=== PATIENT | female | born 1955 | race Caucasian/White ===

== ENCOUNTER 2023-12-05 10:30 | Outpatient (RCR) | payer BC, MEDICARE, SELFPAY ==
--- NOTE | 2023-11-04 16:53 | PT.OIE ---
Current Diagnoses Constipation, unspecified (11/04/23) Stiffness of unspecified hip, not elsewhere classified (11/04/23) Postural lordosis, lumbosacral region (11/04/23) Female genital prolapse, unspecified (11/04/23) Visit Care Team Role Provider Type Brad Golden MD Attending Provider Non-Staff Family Provider Primary Care Provider Referring Provider Specialty: MACHINE PECAN PICKER Address: [address] [place] [address], [id number] Email: Physical Therapy Initial Evaluation PT-OP-A Visit Information Start: 10/28/23 17:06 Freq: Status: Active Protocol: Document 11/04/23 08:18 LRN (Rec: 11/04/23 08:59 LRN [id number]) Out-Patient Physical Therapy Visit Information Visit Information Visit Type Initial Evaluation Visit Start Time 08:18 Visit Stop Time 08:58 Visit Number 08/20 Evaluation Information Evaluation Date 11/04/23 Precautions Precautions Arthritis of hips, HBP controlled by meds, Diabetes type II, fracture R clavical x 2. PT-OP-B Current Condition Start: 10/28/23 17:06 Freq: Status: Active Protocol: Document 11/04/23 08:18 LRN (Rec: 11/04/23 08:59 LRN [id number]) Current Condition History of Current Condition Onset Date 03/2023 Current Complaints Feeling of something in PF, urinates a lot, dribbling after urinating. History of Current Condition Was having bowel movement and was straining and felt something drop. She denies urinary leakage. Was checked and told she had a bladder prolapse. 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 Prior Treatments and Tests None Developmental History Developmental History History of 2 vaginal births w/ o complications. Treatment Goals Patient/Caregiver Goals Pt goals with therapy is to reduce number of voids in a day, improve PF strength to reduce the prolapse. Personal Factors Other Personal Factors That May Effect OA of hips, Ovary & Gall Therapy/Recovery bladder removed. PT-OP-C Subjective Start: 10/28/23 17:06 Freq: Status: Active Protocol: Document 11/04/23 08:18 LRN (Rec: 11/04/23 08:59 LRN [id number]) Patient Questionnaires Pelvic Pain and Urgency/Frequency Patient Symptom Scale Pelvic Pain Score 2 PT-OP-I Pelvic Floor Start: 10/28/23 17:06 Freq: Status: Active Protocol: Document 11/04/23 08:18 LRN (Rec: 11/04/23 08:59 LRN [id number]) Pelvic Floor Assessment Urine Urinary Symptoms Prolapse,Dribbling After Urination,Falling Out Feeling/ Heavy Other Urinary Symptoms Heaviness when having urgency or if need to have a BM. Feels bladder completely empties if sits on toilet long enough. Leakage Size Small Other Leakage Causes Vigorous activity Voiding Frequency 7-8x/day Nocturia 1 Bowel Bowel Symptoms Constipation Bowel Movement Frequency 1-2 in AM [place] Stool Chart Type 1-7 4 Prolapse Cystocele Grade 3 Urethrocele Grade 3 Rectocele Grade 1 Perineal Descent Resting Present Bearing Present Contraction Ability Voluntary Contraction Weak Voluntary Relaxation Weak Manual Muscle Testing Left 3 Manual Muscle Testing Right 2 Manual Muscle Testing Anterior 0 Manual Muscle Testing Posterior 1 Muscle Endurance (Seconds) 4 Number of Quick Contractions In 10 6 Seconds PT-OP-J Posture/Palpation/Skin Start: 10/28/23 17:06 Freq: Status: Active Protocol: Document 11/04/23 08:18 LRN (Rec: 11/04/23 08:59 LRN [id number]) Posture Evaluation Position Standing Head/C-Spine Posture Forward Head T-Spine Posture Flattened L-Spine Posture Increased Lordosis Shoulder Posture (R) Elevated Arm Posture (L) Neutral,(R) Neutral Pelvis Posture Anteriorly Tilted PT-OP-K Range of Motion Start: 10/28/23 17:06 Freq: Status: Active Protocol: Document 11/04/23 08:18 LRN (Rec: 11/04/23 08:59 LRN [id number]) Lumbar Spine Range of Motion Lumbar Spine Active Degrees Testing Position Standing Flexion 80 Extension 7 Rotation Left 20 Rotation Right 20 Lateral Flexion Left 8 Lateral Flexion Right 8 Hip Goniometric Range of Motion Hip Right Passive Testing Position Supine Abduction 20 Internal Rotation 15 External Rotation 20 Left Passive Testing Position Supine Abduction 20 Internal Rotation 20 External Rotation 10 PT-OP-M Strength Start: 10/28/23 17:06 Freq: Status: Active Protocol: Document 11/04/23 08:18 LRN (Rec: 11/04/23 08:59 LRN [id number]) Trunk Strength Trunk Manual Muscle Testing Core Stabilization Decreased stability with hip ext MMT. Hip Strength Hip Manual Muscle Testing Right Comments Strength is 5/5 except as indicated above. Left External Rotation 4 Good Comments Strength is 5/5 except as indicated above. PT-OP-Q Treatments Start: 10/28/23 17:06 Freq: Status: Active Protocol: Document 11/04/23 08:18 LRN (Rec: 11/04/23 08:59 LRN [id number]) Self-Care/Home Management Treatment Education Other Education Discussed results of evaluation, goals, and plan of care (POC) with pt, discussed attendance/cx/dns policy; pt agreeable to goals, attendance /cx/dns policy and POC. Issued, discussed, & reviewed Bladder Diary for pt to complete over the next 7 days. Explained how to fill out diary for bowel & bladder, and counting of urination times. Educated pt in Kegel exercises : quick and long hold contractions. Activities Self-Care/Home Management Activities Issued & reviewed HEP: Kegel ex's and discussed exercise of Quick Flicks and Long Holds. PT-OP-T Assessment and Plan Start: 10/28/23 17:06 Freq: Status: Active Protocol: Document 11/04/23 08:18 LRN (Rec: 11/04/23 08:59 LRN [id number]) Physical Therapy Assessment Rehab Potential Rehabilitation Potential Good Evaluation Complexity Number of Personal Factors/Comorbidities 0 Number of Body Systems Impaired 3 Clinical Presentation at Evaluation Evolving Impairments Impairments Pain,Posture,ROM,Soft Tissue Mobility,Strength,Transfers Other Impairments Cystocele Goals Three Impairment Cystocele due to PF weakness Short Term Goal (STG) Pt will be educated in proper sitting/standing posture. STG Duration 4 wks-12/02/23 Talent Rep Goal (LTG) improve PF strength to 3/5 to reduce bladder prolapse. LTG Duration 8 wks-12/30/23 Two Impairment Increased urinary frequency. Short Term Goal (STG) Pt will be educated in urge deference technique for bladder retraining. STG Duration 4 wks-12/02/23 Senior Care Goal (LTG) Reduce urinary voiding frequency. LTG Duration 8 wks-12/30/23 One Impairment Lacks appropriate self care HEP Short Term Goal (STG) Pt educated in proper transfers to lessen core abdominal pressure and educated in proper body mechanics for ADLs STG Duration 4 wks-12/02/23 Talent Rep Goal (LTG) Pt will be independent in appropriate self care HEP of PF strengthening, core rotational strengthening, & hip stretches (rotation, AB, hamstrings). LTG Duration 8 wks-12/30/23 Assessment Summary Assessment Pt is a 68 yo female with cystocele after straining to have BM and is having reported increased frequency of urination. She presents with cytocele, urethrocele and mild rectocele. She has PF weakness, decreased hip mobility, postural changes, poor core pressure management. The pt will benefit from skilled physical therapy for training and education, strengthening & ROM ex's of LE 's and trunk, biofeedback to the PF, neuro re-education and postural training and progression towards HEP to continue post therapy, and progression to achieve the above stated goals. Physical Therapy Plan Frequency and Duration Frequency of Treatment 1x/Week Duration of treatment (weeks) 8 Plan of Care Start Date 11/04/23 Plan of Care End Date 12/30/23 Therapeutic Interventions Therapeutic Interventions Home Exercise Program,Joint Mobilizations,Manual Therapy, Neuromuscular Re-education, Self-Care/Home Management,Soft Tissue Mobilization, Therapeutic Activities, Therapeutic Exercises Modalities Biofeedback,Cold Pack/Ice Massage,Hot Packs Next Visit Focus/Plan Next Note Type Treatment Note Next Visit Plan Assess bladder diary and bowel involvement with recommendations as appropriate . Vemg assessment. HEP: PF awareness training to relax PF, and relaxation techniques, Hip stretch (R ER, L IR/AB) & core strengthening (rotation, TA). Education in proper methods for transfer with coordination of breathing. Manual therapy for PF stretching (PF clock 6-8). Postural education.
--- NOTE | 2023-11-04 16:53 | PT.OPPOC ---
Physical, Occupational & Speech Therapy At [facility] Current Diagnoses Constipation, unspecified (11/04/23) Stiffness of unspecified hip, not elsewhere classified (11/04/23) Postural lordosis, lumbosacral region (11/04/23) Female genital prolapse, unspecified (11/04/23) Visit Care Team Role Provider Type Brad Golden MD Attending Provider Non-Staff Family Provider Primary Care Provider Referring Provider Specialty: DIRECT CHILL CASTING OPERATOR Address: [address] [place] [address], [id number] Email: Plan Of Care PT-OP-T Assessment and Plan Start: 10/28/23 17:06 Freq: Status: Active Protocol: Document 11/04/23 08:18 LRN (Rec: 11/04/23 08:59 LRN [id number]) Physical Therapy Assessment Rehab Potential Rehabilitation Potential Good Evaluation Complexity Number of Personal Factors/Comorbidities 0 Number of Body Systems Impaired 3 Clinical Presentation at Evaluation Evolving Impairments Impairments Pain,Posture,ROM,Soft Tissue Mobility,Strength,Transfers Other Impairments Cystocele Goals Three Impairment Cystocele due to PF weakness Short Term Goal (STG) Pt will be educated in proper sitting/standing posture. STG Duration 4 wks-12/02/23 Mcfp Goal (LTG) improve PF strength to 3/5 to reduce bladder prolapse. LTG Duration 8 wks-12/30/23 Two Impairment Increased urinary frequency. Short Term Goal (STG) Pt will be educated in urge deference technique for bladder retraining. STG Duration 4 wks-12/02/23 Mushroom Spawn Maker Goal (LTG) Reduce urinary voiding frequency. LTG Duration 8 wks-12/30/23 One Impairment Lacks appropriate self care HEP Short Term Goal (STG) Pt educated in proper transfers to lessen core abdominal pressure and educated in proper body mechanics for ADLs STG Duration 4 wks-12/02/23 Mcfp Goal (LTG) Pt will be independent in appropriate self care HEP of PF strengthening, core rotational strengthening, & hip stretches (rotation, AB, hamstrings). LTG Duration 8 wks-12/30/23 Assessment Summary Assessment Pt is a 68 yo female with cystocele after straining to have BM and is having reported increased frequency of urination. She presents with cytocele, urethrocele and mild rectocele. She has PF weakness, decreased hip mobility, postural changes, poor core pressure management. The pt will benefit from skilled physical therapy for training and education, strengthening & ROM ex's of LE 's and trunk, biofeedback to the PF, neuro re-education and postural training and progression towards HEP to continue post therapy, and progression to achieve the above stated goals. Physical Therapy Plan Frequency and Duration Frequency of Treatment 1x/Week Duration of treatment (weeks) 8 Plan of Care Start Date 11/04/23 Plan of Care End Date 12/30/23 Therapeutic Interventions Therapeutic Interventions Home Exercise Program,Joint Mobilizations,Manual Therapy, Neuromuscular Re-education, Self-Care/Home Management,Soft Tissue Mobilization, Therapeutic Activities, Therapeutic Exercises Modalities Biofeedback,Cold Pack/Ice Massage,Hot Packs Next Visit Focus/Plan Next Note Type Treatment Note Next Visit Plan Assess bladder diary and bowel involvement with recommendations as appropriate . Vemg assessment. HEP: PF awareness training to relax PF, and relaxation techniques, Hip stretch (R ER, L IR/AB) & core strengthening (rotation, TA). Education in proper methods for transfer with coordination of breathing. Manual therapy for PF stretching (PF clock 6-8). Postural education. Plan of Care Dates Plan of Care Start Date 11/04/23 Plan of Care End Date 12/30/23 Electronically Signed by: Radha Walsh, PT 11/04/23 8555 If you are in agreement with this Plan of Care, please return a signed and dated copy. I have reviewed this Plan of Care and certify that the skilled therapy services above are required to meet the patient?s needs. Physician Signature Date Printed Name and Credentials Clinical Instructor Signature Printed Name and Credentials
--- NOTE | 2023-11-11 15:37 | PT.OTN ---
Current Diagnoses Constipation, unspecified (11/11/23) Stiffness of unspecified hip, not elsewhere classified (11/11/23) Postural lordosis, lumbosacral region (11/11/23) Female genital prolapse, unspecified (11/11/23) Physical Therapy Treatment Note PT-OP-A Visit Information Start: 10/28/23 17:06 Freq: Status: Active Protocol: Document 11/11/23 14:34 LRN (Rec: 11/11/23 15:35 LRN [id number]) Out-Patient Physical Therapy Visit Information Visit Information Visit Type Treatment Note Visit Start Time 14:34 Visit Stop Time 15:15 Visit Number / Evaluation Information Evaluation Date 11/04/23 Precautions Precautions Arthritis of hips, HBP controlled by meds, Diabetes type II, fracture R clavical x 2. PT-OP-B Current Condition Start: 10/28/23 17:06 Freq: Status: Active Protocol: Document 11/04/23 08:18 LRN (Rec: 11/04/23 08:59 LRN [id number]) Current Condition History of Current Condition Onset Date 03/2023 Current Complaints Feeling of something in PF, urinates a lot, dribbling after urinating. History of Current Condition Was having bowel movement and was straining and felt something drop. She denies urinary leakage. Was checked and told she had a bladder prolapse. 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 Treatment Goals Patient/Caregiver Goals Pt goals with therapy is to reduce number of voids in a day, improve PF strength to reduce the prolapse. Personal Factors Other Personal Factors That May Effect OA of hips, Ovary & Gall Therapy/Recovery bladder removed. PT-OP-C Subjective Start: 10/28/23 17:06 Freq: Status: Active Protocol: Document 11/11/23 14:34 LRN (Rec: 11/11/23 15:35 LRN [id number]) OP-PT Subjective Patient Comments Patient Comments Doesn't feel the ball as much, but when having BM if straining the ball comes back. Usually not leaking, just urgency to urinate. PT-OP-I Pelvic Floor Start: 10/28/23 17:06 Freq: Status: Active Protocol: Document 11/04/23 08:18 LRN (Rec: 11/04/23 08:59 LRN [id number]) Pelvic Floor Assessment Urine Urinary Symptoms Prolapse,Dribbling After Urination,Falling Out Feeling/ Heavy Other Urinary Symptoms Heaviness when having urgency or if need to have a BM. Feels bladder completely empties if sits on toilet long enough. Leakage Size Small Other Leakage Causes Vigorous activity Voiding Frequency 7-8x/day Nocturia 1 Bowel Bowel Symptoms Constipation Bowel Movement Frequency 1-2 in AM [place] Stool Chart Type 1-7 4 Prolapse Cystocele Grade 3 Urethrocele Grade 3 Rectocele Grade 1 Perineal Descent Resting Present Bearing Present Contraction Ability Voluntary Contraction Weak Voluntary Relaxation Weak Manual Muscle Testing Left 3 Manual Muscle Testing Right 2 Manual Muscle Testing Anterior 0 Manual Muscle Testing Posterior 1 Muscle Endurance (Seconds) 4 Number of Quick Contractions In 10 6 Seconds PT-OP-J Posture/Palpation/Skin Start: 10/28/23 17:06 Freq: Status: Active Protocol: Document 11/04/23 08:18 LRN (Rec: 11/04/23 08:59 LRN [id number]) Posture Evaluation Position Standing Head/C-Spine Posture Forward Head T-Spine Posture Flattened L-Spine Posture Increased Lordosis Shoulder Posture (R) Elevated Arm Posture (L) Neutral,(R) Neutral Pelvis Posture Anteriorly Tilted PT-OP-K Range of Motion Start: 10/28/23 17:06 Freq: Status: Active Protocol: Document 11/04/23 08:18 LRN (Rec: 11/04/23 08:59 LRN [id number]) Lumbar Spine Range of Motion Lumbar Spine Active Degrees Testing Position Standing Flexion 80 Extension 7 Rotation Left 20 Rotation Right 20 Lateral Flexion Left 8 Lateral Flexion Right 8 Hip Goniometric Range of Motion Hip Right Passive Testing Position Supine Abduction 20 Internal Rotation 15 External Rotation 20 Left Passive Testing Position Supine Abduction 20 Internal Rotation 20 External Rotation 10 PT-OP-M Strength Start: 10/28/23 17:06 Freq: Status: Active Protocol: Document 11/04/23 08:18 LRN (Rec: 11/04/23 08:59 LRN [id number]) Trunk Strength Trunk Manual Muscle Testing Core Stabilization Decreased stability with hip ext MMT. Hip Strength Hip Manual Muscle Testing Right Comments Strength is 5/5 except as indicated above. Left External Rotation 4 Good Comments Strength is 5/5 except as indicated above. PT-OP-Q Treatments Start: 10/28/23 17:06 Freq: Status: Active Protocol: Document 11/11/23 14:34 LRN (Rec: 11/11/23 15:35 LRN [id number]) Therapeutic Exercises Supine Exercises On wedge Kegels Supine Exercise Name Kegel for long hold and quick flicks. Reps/Minutes 10' Manual Therapy Treatment Soft Tissue Mobilization Bowel Massage Body Location Bowel massage by PT, then by patient. Body Position Supine on wedge Comments CW from R hip to L hip. Neuro Re-Education Treatment Coordination Activities Transfers w/breath Details Coordination training of transfers w/breath/Kegel Reps/Duration 3' Self-Care/Home Management Treatment Education Other Education Reviewed Bladder dairy and discussed fluid intake and monitoring how much fluid intake, (AM/PM), food types and recommended increased vegs /fruit, & daytime/nighttime voiding frequency and norms. Discussed at length bowel movement frequency, type and methods to improve stool type. Activities Self-Care/Home Management Activities Issued & reviewed HEP: Bowel massage, and Foods & Beverages Bladder diet. PT-OP-T Assessment and Plan Start: 10/28/23 17:06 Freq: Status: Active Protocol: Document 11/11/23 14:34 LRN (Rec: 11/11/23 15:35 LRN [id number]) Physical Therapy Assessment Goals Three Impairment Cystocele due to PF weakness Short Term Goal (STG) Pt will be educated in proper sitting/standing posture. STG Duration 4 wks-12/02/23 Half-Way Goal (LTG) Improve PF strength to 3/5 to reduce bladder prolapse. 11/11/23: Pt educated in Kegle with transfers/ breathwork. LTG Duration 8 wks-12/30/23 progressed Two Impairment Increased urinary frequency. Short Term Goal (STG) Pt will be educated in urge deference technique for bladder retraining. STG Duration 4 wks-12/02/23 Half-Way Goal (LTG) Reduce urinary voiding frequency. LTG Duration 8 wks-12/30/23 One Impairment Lacks appropriate self care HEP Short Term Goal (STG) Pt educated in proper transfers to lessen core abdominal pressure and educated in proper body mechanics for ADLs. 11/11/23: Pt educated in proper transfers to lessen core abdominal pressure. STG Duration 4 wks-12/02/23 progressed (need body mech for ADL tng) Half-Way Goal (LTG) Pt will be independent in appropriate self care HEP of PF strengthening, core rotational strengthening, & hip stretches (rotation, AB, hamstrings). 11/11/23: Pt educated in self bowel massage. LTG Duration 8 wks-12/30/23 progressed. Assessment Summary Assessment 68 yo female with cystocele after straining to have BM and is having reported increased frequency of urination. Per bladder diary review, pt is urinating mostly every 2 hrs. She didn't identify volume of drinking; therefore not able to recommend changes to fluid input/output although urination times are very long. Noted pt not eating enough vegs/fiber; therefore periods of moderate constipation (type 2 stools). Good understanding of core pressure managment relief/Kegels with transfers. Physical Therapy Plan Frequency and Duration Frequency of Treatment 1x/Week Duration of treatment (weeks) 8 Plan of Care Start Date 11/04/23 Plan of Care End Date 12/30/23 Next Visit Focus/Plan Next Note Type Treatment Note Next Visit Plan ?Vemg assessment. Review coordination of transfer w/ breathing. Educate to coordinate lessening core abdominal pressure with body mechanics for ADLs. Educate in urge deference technique for bladder retraining, and educate in proper sitting/standing posture HEP: PF awareness training to relax PF after contraction, Hip stretch (nunu ER, R>L IR/AB ) & core strengthening ( rotation, TA). Manual therapy for PF stretching (PF clock 6-8).
--- NOTE | 2023-11-18 15:29 | PT.OTN ---
Current Diagnoses Constipation, unspecified (11/18/23) Stiffness of unspecified hip, not elsewhere classified (11/18/23) Postural lordosis, lumbosacral region (11/18/23) Female genital prolapse, unspecified (11/18/23) Physical Therapy Treatment Note PT-OP-A Visit Information Start: 10/28/23 17:06 Freq: Status: Active Protocol: Document 11/18/23 14:32 LRN (Rec: 11/18/23 15:29 LRN [id number]) Out-Patient Physical Therapy Visit Information Visit Information Visit Type Treatment Note Visit Start Time 14:32 Visit Stop Time 15:13 Visit Number 10/18 Evaluation Information Evaluation Date 11/04/23 Precautions Precautions Arthritis of hips, HBP controlled by meds, Diabetes type II, fracture R clavical x 2. PT-OP-B Current Condition Start: 10/28/23 17:06 Freq: Status: Active Protocol: Document 11/04/23 08:18 LRN (Rec: 11/04/23 08:59 LRN [id number]) Current Condition History of Current Condition Onset Date 03/2023 Current Complaints Feeling of something in PF, urinates a lot, dribbling after urinating. History of Current Condition Was having bowel movement and was straining and felt something drop. She denies urinary leakage. Was checked and told she had a bladder prolapse. 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 Prior Treatments and Tests None Developmental History Developmental History History of 2 vaginal births w/ o complications. Treatment Goals Patient/Caregiver Goals Pt goals with therapy is to reduce number of voids in a day, improve PF strength to reduce the prolapse. Personal Factors Other Personal Factors That May Effect OA of hips, Ovary & Gall Therapy/Recovery bladder removed. PT-OP-C Subjective Start: 10/28/23 17:06 Freq: Status: Active Protocol: Document 11/18/23 14:32 LRN (Rec: 11/18/23 15:29 LRN [id number]) OP-PT Subjective Patient Comments Patient Comments States she doesn't feel a ball anymore in sitting. Doesn't always feel things are hanging with walking. Bowel massage was helpful in not straining with BM's. PT-OP-I Pelvic Floor Start: 10/28/23 17:06 Freq: Status: Active Protocol: Document 11/04/23 08:18 LRN (Rec: 11/04/23 08:59 LRN [id number]) Pelvic Floor Assessment Urine Urinary Symptoms Prolapse,Dribbling After Urination,Falling Out Feeling/ Heavy Other Urinary Symptoms Heaviness when having urgency or if need to have a BM. Feels bladder completely empties if sits on toilet long enough. Leakage Size Small Other Leakage Causes Vigorous activity Voiding Frequency 7-8x/day Nocturia 1 Bowel Bowel Symptoms Constipation Bowel Movement Frequency 1-2 in AM [place] Stool Chart Type 1-7 4 Prolapse Cystocele Grade 3 Urethrocele Grade 3 Rectocele Grade 1 Perineal Descent Resting Present Bearing Present Contraction Ability Voluntary Contraction Weak Voluntary Relaxation Weak Manual Muscle Testing Left 3 Manual Muscle Testing Right 2 Manual Muscle Testing Anterior 0 Manual Muscle Testing Posterior 1 Muscle Endurance (Seconds) 4 Number of Quick Contractions In 10 6 Seconds PT-OP-J Posture/Palpation/Skin Start: 10/28/23 17:06 Freq: Status: Active Protocol: Document 11/04/23 08:18 LRN (Rec: 11/04/23 08:59 LRN [id number]) Posture Evaluation Position Standing Head/C-Spine Posture Forward Head T-Spine Posture Flattened L-Spine Posture Increased Lordosis Shoulder Posture (R) Elevated Arm Posture (L) Neutral,(R) Neutral Pelvis Posture Anteriorly Tilted PT-OP-K Range of Motion Start: 10/28/23 17:06 Freq: Status: Active Protocol: Document 11/04/23 08:18 LRN (Rec: 11/04/23 08:59 LRN [id number]) Lumbar Spine Range of Motion Lumbar Spine Active Degrees Testing Position Standing Flexion 80 Extension 7 Rotation Left 20 Rotation Right 20 Lateral Flexion Left 8 Lateral Flexion Right 8 Hip Goniometric Range of Motion Hip Right Passive Testing Position Supine Abduction 20 Internal Rotation 15 External Rotation 20 Left Passive Testing Position Supine Abduction 20 Internal Rotation 20 External Rotation 10 PT-OP-M Strength Start: 10/28/23 17:06 Freq: Status: Active Protocol: Document 11/04/23 08:18 LRN (Rec: 11/04/23 08:59 LRN [id number]) Trunk Strength Trunk Manual Muscle Testing Core Stabilization Decreased stability with hip ext MMT. Hip Strength Hip Manual Muscle Testing Right Comments Strength is 5/5 except as indicated above. Left External Rotation 4 Good Comments Strength is 5/5 except as indicated above. PT-OP-Q Treatments Start: 10/28/23 17:06 Freq: Status: Active Protocol: Document 11/18/23 14:32 LRN (Rec: 11/18/23 15:29 LRN [id number]) Therapeutic Exercises Supine Exercises Wedge/Kegel/LE Roll in Supine Exercise Name Kegel/Roll in/ball squeeze/ exhale Equipment Used Ball Reps/Minutes 15x Wedge/Kegel/LE roll out Supine Exercise Name Kegel/Roll out agst TB/inhale - caution hip pain with ER due to arthritis Equipment Used Lev 2 TB Reps/Minutes 15x Wedge/LE roll in/outs Supine Exercise Name 1)Exhale/Kegel w/roll in. 2) Inhale/Kegel w/roll out. Reps/Minutes 15x each Comments Extra time for coordination of breath w/ex. On wedge Kegels Supine Exercise Name Kegel for long hold and quick flicks. Reps/Minutes 10' Standing Exercises Iliopsos stretch Standing Exercise Name Leg behind/PPT, front stance leg knee soft. Side bilateral Reps/Minutes 1' x 2 each Comments Extra time needed to determine max hayley stretch & position. Neuro Re-Education Treatment Coordination Activities Bladder Retraining Details Urge deference technique practice upon standing Reps/Duration 5' Comments Pt able to feel the relaxation after contraction after education and verbal cuing. Transfers w/breath Details Coordination training of transfers w/breath/Kegel - review Reps/Duration 3' Self-Care/Home Management Treatment Education Other Education Educated pt in urge deference technique for bladder retraining. Posture training in sit and stand. Activities Self-Care/Home Management Activities Issued HEP (shown sitting, I/S to do sup w/pillows under hips): Resisted ADD (ball squeeze), written resisted ABD (TBand), I/s to get PF relaxation btn contractions. Issued Lev 2 TB. Issued handout for Urge Deference training. Handout issued for Proper Posture sit and Stand. PT-OP-T Assessment and Plan Start: 10/28/23 17:06 Freq: Status: Active Protocol: Document 11/18/23 14:32 LRN (Rec: 11/18/23 15:29 LRN [id number]) Physical Therapy Assessment Goals Three Impairment Cystocele due to PF weakness Short Term Goal (STG) Pt will be educated in proper sitting/standing posture. 11/18/23: Pt educated in proper sit/stand posture with handout issued. STG Duration 4 wks-12/02/23 (11/18/23: MET GOAL) Edge Cutter Goal (LTG) Improve PF strength to 3/5 to reduce bladder prolapse. 11/11/23: Pt educated in Kegle with transfers/ breathwork. 11/18/23: Wedge/Kegel/ball squeeze/exhale, Wedge/Kegel/ BKFO w/TB/inhale. LTG Duration 8 wks-12/30/23 progressed 01/05 Two Impairment Increased urinary frequency. Short Term Goal (STG) Pt will be educated in urge deference technique for bladder retraining. 11/18/23: Pt educated in urge deference technique with handout issued. STG Duration 4 wks-12/02/23 (11/18/23: MET GOAL) Detention Goal (LTG) Reduce urinary voiding frequency. LTG Duration 8 wks-12/30/23 One Impairment Lacks appropriate self care HEP Short Term Goal (STG) Pt educated in proper transfers to lessen core abdominal pressure and educated in proper body mechanics for ADLs. 11/11/23: Pt educated in proper transfers to lessen core abdominal pressure. STG Duration 4 wks-12/02/23 progressed (need body mech for ADL tng) Edge Cutter Goal (LTG) Pt will be independent in appropriate self care HEP of PF strengthening, core rotational strengthening, & hip stretches (rotation, AB, hamstrings). 11/11/23: Pt educated in self bowel massage. 11/18/23: HEP: On Wedge PF contractions with ball squeeze /exhale, BKFO agst L2 TB/ inhale/glut squeeze and PF relax after contractions. Urge deference technique and posture sit/stand (PPT/TA tight) training. I/S in standing Iliopsoas stretch. LTG Duration 8 wks-12/30/23 progressed 01/05 Assessment Summary Assessment 68 yo female with cystocele after straining to have BM with reported increased frequency of urination. She is now having less feeling of something dropped in her PF and less noticeable with walking. Good coordination of breath w/transfers. Pt receptive to postural, and urge deference education and PF strengthening f/b PF relaxation ex. Physical Therapy Plan Frequency and Duration Frequency of Treatment 1x/Week Duration of treatment (weeks) 8 Plan of Care Start Date 11/04/23 Plan of Care End Date 12/30/23 Next Visit Focus/Plan Next Note Type Treatment Note Next Visit Plan 3 visits remaining. ?Vemg assessment. Assess for need of review of proper sitting/ standing posture, urge deference technique. Review PF strengthening on wedge noting if pt relaxing between contractions. Educate to coordinate lessening core abdominal pressure with body mechanics for ADLs. Add HEP: Hip stretch (nunu ER, R>L IR/AB) & core strengthening (rotation, TA). Issue HEP: Iliopsoas stretch and TA tightening. Manual therapy for PF stretching (PF clock 6-8). Monitor for: PF awareness training to relax PF after contraction.
--- NOTE | 2023-11-25 15:29 | PT.OTN ---
Current Diagnoses Constipation, unspecified (11/25/23) Stiffness of unspecified hip, not elsewhere classified (11/25/23) Postural lordosis, lumbosacral region (11/25/23) Female genital prolapse, unspecified (11/25/23) Physical Therapy Treatment Note PT-OP-A Visit Information Start: 10/28/23 17:06 Freq: Status: Active Protocol: Document 11/25/23 14:18 LRN (Rec: 11/25/23 15:27 LRN [id number]) Out-Patient Physical Therapy Visit Information Visit Information Visit Type Treatment Note Visit Start Time 14:18 Visit Stop Time 15:10 Visit Number 4/ Evaluation Information Evaluation Date 11/04/23 Precautions Precautions Arthritis of hips, HBP controlled by meds, Diabetes type II, fracture R clavical x 2. PT-OP-B Current Condition Start: 10/28/23 17:06 Freq: Status: Active Protocol: Document 11/04/23 08:18 LRN (Rec: 11/04/23 08:59 LRN [id number]) Current Condition History of Current Condition Onset Date 03/2023 Current Complaints Feeling of something in PF, urinates a lot, dribbling after urinating. History of Current Condition Was having bowel movement and was straining and felt something drop. She denies urinary leakage. Was checked and told she had a bladder prolapse. 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 Prior Treatments and Tests None Developmental History Developmental History History of 2 vaginal births w/ o complications. Treatment Goals Patient/Caregiver Goals Pt goals with therapy is to reduce number of voids in a day, improve PF strength to reduce the prolapse. Personal Factors Other Personal Factors That May Effect OA of hips, Ovary & Gall Therapy/Recovery bladder removed. PT-OP-C Subjective Start: 10/28/23 17:06 Freq: Status: Active Protocol: Document 11/25/23 14:18 LRN (Rec: 11/25/23 15:27 LRN [id number]) OP-PT Subjective Patient Comments Patient Comments Only issue if walks too long or picks up something heavy ( cat or cat litter), feels something drops. Has less urgency. PT-OP-I Pelvic Floor Start: 10/28/23 17:06 Freq: Status: Active Protocol: Document 11/04/23 08:18 LRN (Rec: 11/04/23 08:59 LRN [id number]) Pelvic Floor Assessment Urine Urinary Symptoms Prolapse,Dribbling After Urination,Falling Out Feeling/ Heavy Other Urinary Symptoms Heaviness when having urgency or if need to have a BM. Feels bladder completely empties if sits on toilet long enough. Leakage Size Small Other Leakage Causes Vigorous activity Voiding Frequency 7-8x/day Nocturia 1 Bowel Bowel Symptoms Constipation Bowel Movement Frequency 1-2 in AM [place] Stool Chart Type 1-7 4 Prolapse Cystocele Grade 3 Urethrocele Grade 3 Rectocele Grade 1 Perineal Descent Resting Present Bearing Present Contraction Ability Voluntary Contraction Weak Voluntary Relaxation Weak Manual Muscle Testing Left 3 Manual Muscle Testing Right 2 Manual Muscle Testing Anterior 0 Manual Muscle Testing Posterior 1 Muscle Endurance (Seconds) 4 Number of Quick Contractions In 10 6 Seconds PT-OP-J Posture/Palpation/Skin Start: 10/28/23 17:06 Freq: Status: Active Protocol: Document 11/04/23 08:18 LRN (Rec: 11/04/23 08:59 LRN [id number]) Posture Evaluation Position Standing Head/C-Spine Posture Forward Head T-Spine Posture Flattened L-Spine Posture Increased Lordosis Shoulder Posture (R) Elevated Arm Posture (L) Neutral,(R) Neutral Pelvis Posture Anteriorly Tilted PT-OP-K Range of Motion Start: 10/28/23 17:06 Freq: Status: Active Protocol: Document 11/04/23 08:18 LRN (Rec: 11/04/23 08:59 LRN [id number]) Lumbar Spine Range of Motion Lumbar Spine Active Degrees Testing Position Standing Flexion 80 Extension 7 Rotation Left 20 Rotation Right 20 Lateral Flexion Left 8 Lateral Flexion Right 8 Hip Goniometric Range of Motion Hip Right Passive Testing Position Supine Abduction 20 Internal Rotation 15 External Rotation 20 Left Passive Testing Position Supine Abduction 20 Internal Rotation 20 External Rotation 10 PT-OP-M Strength Start: 10/28/23 17:06 Freq: Status: Active Protocol: Document 11/04/23 08:18 LRN (Rec: 11/04/23 08:59 LRN [id number]) Trunk Strength Trunk Manual Muscle Testing Core Stabilization Decreased stability with hip ext MMT. Hip Strength Hip Manual Muscle Testing Right Comments Strength is 5/5 except as indicated above. Left External Rotation 4 Good Comments Strength is 5/5 except as indicated above. PT-OP-Q Treatments Start: 10/28/23 17:06 Freq: Status: Active Protocol: Document 11/25/23 14:18 LRN (Rec: 11/25/23 15:27 LRN [id number]) Therapeutic Exercises Supine Exercises Hip IR stretch Supine Exercise Name [place]: Knees rolled in Side bilateral Reps/Minutes 4' Iliopsoas stretch Supine Exercise Name KTC w/opp knee lowering Side bilateral Reps/Minutes 60 SH x 1 each Comments Extra time to determine max tolerated stretch & hand positional hold Wedge/Kegel/LE Roll in Supine Exercise Name Kegel/Roll in/ball squeeze/ exhale Equipment Used Ball Reps/Minutes 15x Wedge/Kegel/LE roll out Supine Exercise Name Kegel/Roll out agst TB/inhale - caution hip pain with ER due to arthritis Equipment Used Lev 2 TB Reps/Minutes 15x Wedge/LE roll in/outs Supine Exercise Name Hold Kegel through: 1)roll in /Exhale -> roll out/Inhale Equipment Used Ball Reps/Minutes 15x each Comments Extra time for coordination of breath w/ex. On wedge Kegels Supine Exercise Name Kegel for long hold and quick flicks. Reps/Minutes 10' Sitting Exercises Hip ER stretch Sitting Exercise Name Verbal review of handout. Reps/Minutes 1' Standing Exercises PF long hold contraction Standing Exercise Name HS stretch position for Kegel f/b PF relaxation or reverse kegel. Reps/Minutes 5' Comments Training for positioning, cuing for when to do Kegel & PF relax Self-Care/Home Management Treatment Education Patient Education Body Mechanics,Home Exercise Program Other Education Pt educated in proper body mechanics for ADLs. Activities Self-Care/Home Management Activities Handout issued for body mechanics for ADLs. Issued & reviewed HEP: Supine : Iliopsoas stretch (KTC), Hip IR stretch (I/S sup stretch w /feet out) and ER; sitting hip IR stretch (feet out/knees in ). PT-OP-T Assessment and Plan Start: 10/28/23 17:06 Freq: Status: Active Protocol: Document 11/25/23 14:18 LRN (Rec: 11/25/23 15:27 LRN [id number]) Physical Therapy Assessment Goals Three Impairment Cystocele due to PF weakness Short Term Goal (STG) Pt will be educated in proper sitting/standing posture. 11/18/23: Pt educated in proper sit/stand posture with handout issued. STG Duration 4 wks-12/02/23 (11/18/23: MET GOAL) Skilled Nursing Goal (LTG) Improve PF strength to 3/5 to reduce bladder prolapse. 11/11/23: Pt educated in Kegle with transfers/ breathwork. 11/18/23: Wedge/Kegel/ball squeeze/exhale, Wedge/Kegel/ BKFO w/TB/inhale. LTG Duration 8 wks-12/30/23 progressed 01/05 Two Impairment Increased urinary frequency. Short Term Goal (STG) Pt will be educated in urge deference technique for bladder retraining. 11/18/23: Pt educated in urge deference technique with handout issued. STG Duration 4 wks-12/02/23 (11/18/23: MET GOAL) [employer] Fre[employer] Clerk Goal (LTG) Reduce urinary voiding frequency. 11/25/23: Voiding every 2.5-3 hrs. LTG Duration 8 wks-12/30/23 (11/25/23: MET GOAL) One Impairment Lacks appropriate self care HEP Short Term Goal (STG) Pt educated in proper transfers to lessen core abdominal pressure and educated in proper body mechanics for ADLs. 11/11/23: Pt educated in proper transfers to lessen core abdominal pressure. 11/25/23: Pt educated in proper body mechanics for ADLs . STG Duration 4 wks-12/02/23 (11/25/23: MET GOAL) [employer] Fre[employer] Clerk Goal (LTG) Pt will be independent in appropriate self care HEP of PF strengthening, core rotational strengthening, & hip stretches (rotation, AB, hamstrings). 11/11/23: Pt educated in self bowel massage. 11/18/23: HEP: On Wedge PF contractions with ball squeeze /exhale, BKFO agst L2 TB/ inhale/glut squeeze and PF relax after contractions. Urge deference technique and posture sit/stand (PPT/TA tight) training. I/S in standing Iliopsoas stretch. 11/25/23: HEP: Supine: Iliopsoas stretch (KTC), Hip IR stretch (I/S sup stretch w/ feet out) and ER; sitting hip IR stretch (feet out/knees in) . LTG Duration 8 wks-12/30/23 progressed 08/07 Assessment Summary Assessment 68 yo female with cystocele after straining to have BM with reported increased frequency of urination. Today pt reports no questions regarding urge deference technique and is improved with less voiding frequency overall with normal voids every 2.5-3 hrs. Physical Therapy Plan Frequency and Duration Frequency of Treatment 1x/Week Duration of treatment (weeks) 8 Plan of Care Start Date 11/04/23 Plan of Care End Date 12/30/23 Next Visit Focus/Plan Next Note Type Treatment Note Next Visit Plan 2 visits remaining. Final visit assess PF strength. Cont reviewing PF relaxation after contractions w/hips elevated. Review Hip nunu ER, & note for pt HEP R>L IR. Add HEP: Hip stretch (R>L AB) & core strengthening ( rotation, TA). Issue HEP: TA tightening. Manual therapy for PF stretching (PF clock 6-8). Monitor for: PF awareness training to relax PF after contraction.
--- NOTE | 2023-11-28 11:38 | PT.OTN ---
Current Diagnoses Constipation, unspecified (11/28/23) Stiffness of unspecified hip, not elsewhere classified (11/28/23) Postural lordosis, lumbosacral region (11/28/23) Female genital prolapse, unspecified (11/28/23) Physical Therapy Treatment Note PT-OP-A Visit Information Start: 10/28/23 17:06 Freq: Status: Active Protocol: Document 11/28/23 10:38 LRN (Rec: 11/28/23 11:35 LRN [id number]) Out-Patient Physical Therapy Visit Information Visit Information Visit Type Treatment Note Visit Start Time 10:38 Visit Stop Time 11:23 Visit Number 5/6 Evaluation Information Evaluation Date 11/04/23 Precautions Precautions Arthritis of hips, HBP controlled by meds, Diabetes type II, fracture R clavical x 2. PT-OP-B Current Condition Start: 10/28/23 17:06 Freq: Status: Active Protocol: Document 11/04/23 08:18 LRN (Rec: 11/04/23 08:59 LRN [id number]) Current Condition History of Current Condition Onset Date 03/2023 Current Complaints Feeling of something in PF, urinates a lot, dribbling after urinating. History of Current Condition Was having bowel movement and was straining and felt something drop. She denies urinary leakage. Was checked and told she had a bladder prolapse. 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 Prior Treatments and Tests None Developmental History Developmental History History of 2 vaginal births w/ o complications. Treatment Goals Patient/Caregiver Goals Pt goals with therapy is to reduce number of voids in a day, improve PF strength to reduce the prolapse. Personal Factors Other Personal Factors That May Effect OA of hips, Ovary & Gall Therapy/Recovery bladder removed. PT-OP-C Subjective Start: 10/28/23 17:06 Freq: Status: Active Protocol: Document 11/25/23 14:18 LRN (Rec: 11/25/23 15:27 LRN [id number]) OP-PT Subjective Patient Comments Patient Comments Only issue if walks too long or picks up something heavy ( cat or cat litter), feels something drops. Has less urgency. PT-OP-I Pelvic Floor Start: 10/28/23 17:06 Freq: Status: Active Protocol: Document 11/28/23 10:38 LRN (Rec: 11/28/23 11:35 LRN [id number]) Pelvic Floor Assessment Prolapse Cystocele Grade 3 Urethrocele Grade 3 Rectocele Grade 1 Prolapse Comments No bulging out of bladder with cough. Contraction Ability Voluntary Contraction Weak Voluntary Relaxation Weak Manual Muscle Testing Left 2 Manual Muscle Testing Right 2 Manual Muscle Testing Anterior 2 Manual Muscle Testing Posterior 1 Muscle Endurance (Seconds) 4 Number of Quick Contractions In 10 10 Seconds Comments Pelvic Floor Comments Weak lateral wall contractions . PT-OP-J Posture/Palpation/Skin Start: 10/28/23 17:06 Freq: Status: Active Protocol: Document 11/04/23 08:18 LRN (Rec: 11/04/23 08:59 LRN [id number]) Posture Evaluation Position Standing Head/C-Spine Posture Forward Head T-Spine Posture Flattened L-Spine Posture Increased Lordosis Shoulder Posture (R) Elevated Arm Posture (L) Neutral,(R) Neutral Pelvis Posture Anteriorly Tilted PT-OP-K Range of Motion Start: 10/28/23 17:06 Freq: Status: Active Protocol: Document 11/04/23 08:18 LRN (Rec: 11/04/23 08:59 LRN [id number]) Lumbar Spine Range of Motion Lumbar Spine Active Degrees Testing Position Standing Flexion 80 Extension 7 Rotation Left 20 Rotation Right 20 Lateral Flexion Left 8 Lateral Flexion Right 8 Hip Goniometric Range of Motion Hip Right Passive Testing Position Supine Abduction 20 Internal Rotation 15 External Rotation 20 Left Passive Testing Position Supine Abduction 20 Internal Rotation 20 External Rotation 10 PT-OP-M Strength Start: 10/28/23 17:06 Freq: Status: Active Protocol: Document 11/04/23 08:18 LRN (Rec: 11/04/23 08:59 LRN [id number]) Trunk Strength Trunk Manual Muscle Testing Core Stabilization Decreased stability with hip ext MMT. Hip Strength Hip Manual Muscle Testing Right Comments Strength is 5/5 except as indicated above. Left External Rotation 4 Good Comments Strength is 5/5 except as indicated above. PT-OP-Q Treatments Start: 10/28/23 17:06 Freq: Status: Active Protocol: Document 11/28/23 10:38 LRN (Rec: 11/28/23 11:35 LRN [id number]) Therapeutic Exercises Supine Exercises Kegels Quick & Long Hold Reps/Minutes 10 x 2 quick, 2x long hold Comments MMT taken Kegel/Bridge/TB hip BKFO Reps/Minutes 10 quick, 5 long hold squence above Comments Cuing for sequencing & to breath thru exer. Kegel/Bridge/Ball squeeze Supine Exercise Name Quick Kegel & Long hold: Kegel/5x Bridge/ball squeeze Reps/Minutes 10 quick, 5 long hold squence above Comments Cuing for sequencing & to breath thru exer. Hip IR stretch Supine Exercise Name Hooklie: Knees rolled in Side bilateral Reps/Minutes 4' Iliopsoas stretch Supine Exercise Name Knee bent and opp leg off plinth Side bilateral Reps/Minutes 60 SH x 1 each Self-Care/Home Management Treatment Activities Self-Care/Home Management Activities Issued & reviewed HEP: Iliopsoas stretch in standing and supine as leg straight ( lengthened) and opp knee bent. PT-OP-T Assessment and Plan Start: 10/28/23 17:06 Freq: Status: Active Protocol: Document 11/28/23 10:38 LRN (Rec: 11/28/23 11:35 LRN [id number]) Physical Therapy Assessment Goals Three Impairment Cystocele due to PF weakness Short Term Goal (STG) Pt will be educated in proper sitting/standing posture. 11/18/23: Pt educated in proper sit/stand posture with handout issued. STG Duration 4 wks-12/02/23 (11/18/23: MET GOAL) Offshoring Manager Goal (LTG) Improve PF strength to 3/5 to reduce bladder prolapse. 11/11/23: Pt educated in Kegle with transfers/ breathwork. 11/18/23: Wedge/Kegel/ball squeeze/exhale, Wedge/Kegel/ BKFO w/TB/inhale. 11/28/23: PF strength 2/5 except posterior 1/5. LTG Duration 8 wks-12/30/23 progressed One Impairment Lacks appropriate self care HEP Short Term Goal (STG) Pt educated in proper transfers to lessen core abdominal pressure and educated in proper body mechanics for ADLs. 11/11/23: Pt educated in proper transfers to lessen core abdominal pressure. 11/25/23: Pt educated in proper body mechanics for ADLs . STG Duration 4 wks-12/02/23 (11/25/23: MET GOAL) Retirement Goal (LTG) Pt will be independent in appropriate self care HEP of PF strengthening, core rotational strengthening, & hip stretches (rotation, AB, hamstrings). 11/11/23: Pt educated in self bowel massage. 11/18/23: HEP: On Wedge PF contractions with ball squeeze /exhale, BKFO agst L2 TB/ inhale/glut squeeze and PF relax after contractions. Urge deference technique and posture sit/stand (PPT/TA tight) training. I/S in standing Iliopsoas stretch. 11/25/23: HEP: Supine: Iliopsoas stretch (KTC), Hip IR stretch (I/S sup stretch w/ feet out) and ER; sitting hip IR stretch (feet out/knees in) . 11/28/23: HEP: Iliopsoas stretch in stand or supine. LTG Duration 8 wks-12/30/23 progressed Assessment Summary Assessment 68 yo female with cystocele after straining to have BM with reported increased frequency of urination. Today, extra time taken for pt to degown and gown for PF assessment with contractions. Pt has improved in PF strength and is able to relax PF after contraction, except quick contractions she is not getting full relaxation between contractions. In supine, bladder but does not bulge out with coughing. Pt hasn't done new ex's but showed good recall. Lateral daniels of PF are weak, no tenderness or tightness noted for PF clock 6-8 Physical Therapy Plan Frequency and Duration Frequency of Treatment 1x/Week Duration of treatment (weeks) 8 Plan of Care Start Date 11/04/23 Plan of Care End Date 12/30/23 Next Visit Focus/Plan Next Note Type Treatment Note Next Visit Plan DC to HEP. Assess goals Cont reviewing w/hips elevated , PF relaxation (no reverse Kegels) after contractions. Add to HEP: Hip stretch (R>L inner thighs) & core strengthening (rotation,TA). Monitor for: PF awareness training to relax PF after contraction.
--- NOTE | 2023-12-05 11:53 | PT.OTN ---
Current Diagnoses Constipation, unspecified (12/05/23) Stiffness of unspecified hip, not elsewhere classified (12/05/23) Postural lordosis, lumbosacral region (12/05/23) Female genital prolapse, unspecified (12/05/23) Physical Therapy Treatment Note PT-OP-A Visit Information Start: 10/28/23 17:06 Freq: Status: Active Protocol: Document 12/05/23 10:33 LRN (Rec: 12/05/23 11:34 LRN [id number]) Out-Patient Physical Therapy Visit Information Visit Information Visit Type Treatment Note Visit Start Time 10:33 Visit Stop Time 11:33 Visit Number 01/18 Evaluation Information Evaluation Date 11/04/23 Precautions Precautions Arthritis of hips, HBP controlled by meds, Diabetes type II, fracture R clavical x 2. PT-OP-B Current Condition Start: 10/28/23 17:06 Freq: Status: Active Protocol: Document 11/04/23 08:18 LRN (Rec: 11/04/23 08:59 LRN [id number]) Current Condition History of Current Condition Onset Date 03/2023 Current Complaints Feeling of something in PF, urinates a lot, dribbling after urinating. History of Current Condition Was having bowel movement and was straining and felt something drop. She denies urinary leakage. Was checked and told she had a bladder prolapse. 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 Prior Treatments and Tests None Developmental History Developmental History History of 2 vaginal births w/ o complications. Treatment Goals Patient/Caregiver Goals Pt goals with therapy is to reduce number of voids in a day, improve PF strength to reduce the prolapse. Personal Factors Other Personal Factors That May Effect OA of hips, Ovary & Gall Therapy/Recovery bladder removed. PT-OP-C Subjective Start: 10/28/23 17:06 Freq: Status: Active Protocol: Document 12/05/23 10:33 LRN (Rec: 12/05/23 11:34 LRN [id number]) OP-PT Subjective Patient Comments Patient Comments Feels she has enough info to know what to do. Reports no heaviness in pelvic region and reports no urinary leakage trying to get to bathroom. Hasn't had vigorous activity ( jumping) for a long time. PT-OP-I Pelvic Floor Start: 10/28/23 17:06 Freq: Status: Active Protocol: Document 12/05/23 10:33 LRN (Rec: 12/05/23 11:34 LRN [id number]) Pelvic Floor Assessment Urine Leaks Per Day 0 Bowel Bowel Movement Frequency 1-2 in AM [place] Stool Chart Type 1-7 4 Pelvic Clock Pelvic Clock 12-3 Tenderness Prolapse Cystocele Grade 2 Perineal Descent Resting Absent Bearing Present Contraction Ability Manual Muscle Testing Left 3 Manual Muscle Testing Right 3 Manual Muscle Testing Anterior 2 Manual Muscle Testing Posterior 3 Muscle Endurance (Seconds) 9 Number of Quick Contractions In 10 10 Seconds PT-OP-J Posture/Palpation/Skin Start: 10/28/23 17:06 Freq: Status: Active Protocol: Document 11/04/23 08:18 LRN (Rec: 11/04/23 08:59 LRN [id number]) Posture Evaluation Position Standing Head/C-Spine Posture Forward Head T-Spine Posture Flattened L-Spine Posture Increased Lordosis Shoulder Posture (R) Elevated Arm Posture (L) Neutral,(R) Neutral Pelvis Posture Anteriorly Tilted PT-OP-K Range of Motion Start: 10/28/23 17:06 Freq: Status: Active Protocol: Document 11/04/23 08:18 LRN (Rec: 11/04/23 08:59 LRN [id number]) Lumbar Spine Range of Motion Lumbar Spine Active Degrees Testing Position Standing Flexion 80 Extension 7 Rotation Left 20 Rotation Right 20 Lateral Flexion Left 8 Lateral Flexion Right 8 Hip Goniometric Range of Motion Hip Right Passive Testing Position Supine Abduction 20 Internal Rotation 15 External Rotation 20 Left Passive Testing Position Supine Abduction 20 Internal Rotation 20 External Rotation 10 PT-OP-M Strength Start: 10/28/23 17:06 Freq: Status: Active Protocol: Document 11/04/23 08:18 LRN (Rec: 11/04/23 08:59 LRN [id number]) Trunk Strength Trunk Manual Muscle Testing Core Stabilization Decreased stability with hip ext MMT. Hip Strength Hip Manual Muscle Testing Right Comments Strength is 5/5 except as indicated above. Left External Rotation 4 Good Comments Strength is 5/5 except as indicated above. PT-OP-Q Treatments Start: 10/28/23 17:06 Freq: Status: Active Protocol: Document 12/05/23 10:33 LRN (Rec: 12/05/23 11:34 LRN [id number]) Therapeutic Exercises Supine Exercises Loc trunk flex/rot Supine Exercise Name Hand/knee press: Single leg and double leg & opp knee. Side bilateral Reps/Minutes 10 SH x 3 each type Comments Cued for hand placment and breathing thru ex, cued for locat of tightening Sitting Exercises Loc trunk flex/rot Sitting Exercise Name Hand to knee press Reps/Minutes 10 SH Comments Cued for hand placment and breathing thru ex Hamstring/LE neural glide Side bilateral Reps/Minutes Sequence: 10 SH f/b 10 ankle pumps - 3 sets Comments Cued for correct performance of ex. Standing Exercises Trunk Rot Standing Exercise Name Trunk Rot strengthening Exhale on the pull. Side bilateral Equipment Used L4 TB Reps/Minutes 10x each Comments Pt cued to do ex w/minimal to no feeling of workout. No strain Paloff press position w/trunk rot Side bilateral Equipment Used L4 TB Comments Extra time to determine max hayley TB stretch for strengthening Paloff Press Standing Exercise Name Paloff press Side bilateral Equipment Used L4 TB Reps/Minutes 10x each Comments Extra time to determine max hayley TB stretch for strengthening Self-Care/Home Management Treatment Activities Self-Care/Home Management Activities Issued HEP: Sitting/Supine: LE hamstring/neural glide & core strengthening isometrics for flex & rotation (hands/ knee push). Standing trunk rotation and loc lateral trunk. Lev 4 TB issued. PT-OP-T Assessment and Plan Start: 10/28/23 17:06 Freq: Status: Active Protocol: Document 12/05/23 10:33 LRN (Rec: 12/05/23 11:34 LRN [id number]) Physical Therapy Assessment Goals Three Impairment Cystocele due to PF weakness Short Term Goal (STG) Pt will be educated in proper sitting/standing posture. 11/18/23: Pt educated in proper sit/stand posture with handout issued. STG Duration 4 wks-12/02/23 (11/18/23: MET GOAL) Snf Goal (LTG) Improve PF strength to 3/5 to reduce bladder prolapse. 11/11/23: Pt educated in Kegle with transfers/ breathwork. 11/18/23: Wedge/Kegel/ball squeeze/exhale, Wedge/Kegel/ BKFO w/TB/inhale. 11/28/23: PF strength 2/5 except posterior 1/5. 12/05/23: PF strength is 3/5 except ANTERIOR IS 2/5. LTG Duration 8 wks-12/30/23 (12/05/23: Mostly MET GOAL except anter PF is 2/5) Two Impairment Increased urinary frequency. Short Term Goal (STG) Pt will be educated in urge deference technique for bladder retraining. 11/18/23: Pt educated in urge deference technique with handout issued. STG Duration 4 wks-12/02/23 (11/18/23: MET GOAL) Hearing Stenographer Goal (LTG) Reduce urinary voiding frequency. 11/25/23: Voiding every 2.5-3 hrs. LTG Duration 8 wks-12/30/23 (11/25/23: MET GOAL) One Impairment Lacks appropriate self care HEP Short Term Goal (STG) Pt educated in proper transfers to lessen core abdominal pressure and educated in proper body mechanics for ADLs. 11/11/23: Pt educated in proper transfers to lessen core abdominal pressure. 11/25/23: Pt educated in proper body mechanics for ADLs . STG Duration 4 wks-12/02/23 (11/25/23: MET GOAL) Hearing Stenographer Goal (LTG) Pt will be independent in appropriate self care HEP of PF strengthening, core rotational strengthening, & hip stretches (rotation, AB, hamstrings). 11/11/23: Pt educated in self bowel massage. 11/18/23: HEP: On Wedge PF contractions with ball squeeze /exhale, BKFO agst L2 TB/ inhale/glut squeeze and PF relax after contractions. Urge deference technique and posture sit/stand (PPT/TA tight) training. I/S in standing Iliopsoas stretch. 11/25/23: HEP: Supine: Iliopsoas stretch (KTC), Hip IR stretch (I/S sup stretch w/ feet out) and ER; sitting hip IR stretch (feet out/knees in) . 11/28/23: HEP: Iliopsoas stretch in stand or supine. 12/05/23: HEP: Sitting/ Supine: LE hamstring/neural glide & core strengthening isometrics for flex & rotation (hands/knee push). Standing trunk rotation and loc lateral trunk. Lev 4 TB issued. LTG Duration 8 wks-12/30/23 (12/05/23: MET GOAL) Assessment Summary Assessment Pt is a 68 yo female who was receiving PF therapy for a cystocele after straining to have BM with reported increased frequency of urination. She has made very good improvement with her PF strength and her symptoms of frequency is now normal and her urinary leakage has resolved. She doesn't appear to have a urethocele or visible rectocele. Cystocele is minimally visible and she is able to get a lift with a PF contraction. Core pressure management is much improved as is her ability to perform her hip mobility exercises. The pt has a good understanding of her self care program and she feels ready to be discharged from therapy as I would agree. No further therapy is needed. Physical Therapy Plan Discharge Physical Therapy Discharge Reasons Patient Request Discharge Comments Met goals except mild weakness with anterior PF for which in the future PT may be needed if urinary leakage returns. Thank you for your referral.
--- NOTE | 2023-12-05 11:58 | PT.OPDS ---
Current Diagnoses Constipation, unspecified (12/05/23) Stiffness of unspecified hip, not elsewhere classified (12/05/23) Postural lordosis, lumbosacral region (12/05/23) Female genital prolapse, unspecified (12/05/23) Visit Care Team Role Provider Type Brad Golden MD Attending Provider Non-Staff Family Provider Primary Care Provider Referring Provider Specialty: STOCK [employer]ER Address: [address] [place] [address], [id number] Email: Visit Number Visit Number 01/18 Discharge Summary PT-OP-B Current Condition Start: 10/28/23 17:06 Freq: Status: Active Protocol: Document 11/04/23 08:18 LRN (Rec: 11/04/23 08:59 LRN [id number]) Current Condition History of Current Condition Onset Date 03/2023 Current Complaints Feeling of something in PF, urinates a lot, dribbling after urinating. History of Current Condition Was having bowel movement and was straining and felt something drop. She denies urinary leakage. Was checked and told she had a bladder prolapse. 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 Prior Treatments and Tests None Developmental History Developmental History History of 2 vaginal births w/ o complications. Treatment Goals Patient/Caregiver Goals Pt goals with therapy is to reduce number of voids in a day, improve PF strength to reduce the prolapse. Personal Factors Other Personal Factors That May Effect OA of hips, Ovary & Gall Therapy/Recovery bladder removed. PT-OP-C Subjective Start: 10/28/23 17:06 Freq: Status: Active Protocol: Document 12/05/23 10:33 LRN (Rec: 12/05/23 11:34 LRN [id number]) OP-PT Subjective Patient Comments Patient Comments Feels she has enough info to know what to do. Reports no heaviness in pelvic region and reports no urinary leakage trying to get to bathroom. Hasn't had vigorous activity ( jumping) for a long time. Patient Questionnaires Pelvic Pain and Urgency/Frequency Patient Symptom Scale Pelvic Pain Score 1 PT-OP-I Pelvic Floor Start: 10/28/23 17:06 Freq: Status: Active Protocol: Document 12/05/23 10:33 LRN (Rec: 12/05/23 11:34 LRN [id number]) Pelvic Floor Assessment Urine Leaks Per Day 0 Bowel Bowel Movement Frequency 1-2 in AM [place] Stool Chart Type 1-7 4 Pelvic Clock Pelvic Clock 12-3 Tenderness Prolapse Cystocele Grade 2 Perineal Descent Resting Absent Bearing Present Contraction Ability Manual Muscle Testing Left 3 Manual Muscle Testing Right 3 Manual Muscle Testing Anterior 2 Manual Muscle Testing Posterior 3 Muscle Endurance (Seconds) 9 Number of Quick Contractions In 10 10 Seconds PT-OP-J Posture/Palpation/Skin Start: 10/28/23 17:06 Freq: Status: Active Protocol: Document 11/04/23 08:18 LRN (Rec: 11/04/23 08:59 LRN [id number]) Posture Evaluation Position Standing Head/C-Spine Posture Forward Head T-Spine Posture Flattened L-Spine Posture Increased Lordosis Shoulder Posture (R) Elevated Arm Posture (L) Neutral,(R) Neutral Pelvis Posture Anteriorly Tilted PT-OP-K Range of Motion Start: 10/28/23 17:06 Freq: Status: Active Protocol: Document 11/04/23 08:18 LRN (Rec: 11/04/23 08:59 LRN [id number]) Lumbar Spine Range of Motion Lumbar Spine Active Degrees Testing Position Standing Flexion 80 Extension 7 Rotation Left 20 Rotation Right 20 Lateral Flexion Left 8 Lateral Flexion Right 8 Hip Goniometric Range of Motion Hip Right Passive Testing Position Supine Abduction 20 Internal Rotation 15 External Rotation 20 Left Passive Testing Position Supine Abduction 20 Internal Rotation 20 External Rotation 10 PT-OP-M Strength Start: 10/28/23 17:06 Freq: Status: Active Protocol: Document 11/04/23 08:18 LRN (Rec: 11/04/23 08:59 LRN [id number]) Trunk Strength Trunk Manual Muscle Testing Core Stabilization Decreased stability with hip ext MMT. Hip Strength Hip Manual Muscle Testing Right Comments Strength is 5/5 except as indicated above. Left External Rotation 4 Good Comments Strength is 5/5 except as indicated above. PT-OP-T Assessment and Plan Start: 10/28/23 17:06 Freq: Status: Active Protocol: Document 12/05/23 10:33 LRN (Rec: 12/05/23 11:34 LRN [id number]) Physical Therapy Assessment Goals Three Impairment Cystocele due to PF weakness Short Term Goal (STG) Pt will be educated in proper sitting/standing posture. 11/18/23: Pt educated in proper sit/stand posture with handout issued. STG Duration 4 wks-12/02/23 (11/18/23: MET GOAL) [facility] Goal (LTG) Improve PF strength to 3/5 to reduce bladder prolapse. 11/11/23: Pt educated in [place] with transfers/ breathwork. 11/18/23: Wedge/Kegel/ball squeeze/exhale, Wedge/Kegel/ BKFO w/TB/inhale. 11/28/23: PF strength 2/5 except posterior 1/5. 12/05/23: PF strength is 3/5 except ANTERIOR IS 2/5. LTG Duration 8 wks-12/30/23 (12/05/23: Mostly MET GOAL except anter PF is 2/5) Two Impairment Increased urinary frequency. Short Term Goal (STG) Pt will be educated in urge deference technique for bladder retraining. 11/18/23: Pt educated in urge deference technique with handout issued. STG Duration 4 wks-12/02/23 (11/18/23: MET GOAL) [employer] Goal (LTG) Reduce urinary voiding frequency. 11/25/23: Voiding every 2.5-3 hrs. LTG Duration 8 wks-12/30/23 (11/25/23: MET GOAL) One Impairment Lacks appropriate self care HEP Short Term Goal (STG) Pt educated in proper transfers to lessen core abdominal pressure and educated in proper body mechanics for ADLs. 11/11/23: Pt educated in proper transfers to lessen core abdominal pressure. 11/25/23: Pt educated in proper body mechanics for ADLs . STG Duration 4 wks-12/02/23 (11/25/23: MET GOAL) [employer] Goal (LTG) Pt will be independent in appropriate self care HEP of PF strengthening, core rotational strengthening, & hip stretches (rotation, AB, hamstrings). 11/11/23: Pt educated in self bowel massage. 11/18/23: HEP: On Wedge PF contractions with ball squeeze /exhale, BKFO agst L2 TB/ inhale/glut squeeze and PF relax after contractions. Urge deference technique and posture sit/stand (PPT/TA tight) training. I/S in standing Iliopsoas stretch. 11/25/23: HEP: Supine: Iliopsoas stretch (KTC), Hip IR stretch (I/S sup stretch w/ feet out) and ER; sitting hip IR stretch (feet out/knees in) . 11/28/23: HEP: Iliopsoas stretch in stand or supine. 12/05/23: HEP: Sitting/ Supine: LE hamstring/neural glide & core strengthening isometrics for flex & rotation (hands/knee push). Standing trunk rotation and sha lateral trunk. Lev 4 TB issued. LTG Duration 8 wks-12/30/23 (12/05/23: MET GOAL) Assessment Summary Assessment Pt is a 68 yo female who was receiving PF therapy for a cystocele after straining to have BM with reported increased frequency of urination. She has made very good improvement with her PF strength and her symptoms of frequency is now normal and her urinary leakage has resolved. She doesn't appear to have a urethocele or visible rectocele. Cystocele is minimally visible and she is able to get a lift with a PF contraction. Core pressure management is much improved as is her ability to perform her hip mobility exercises. The pt has a good understanding of her self care program and she feels ready to be discharged from therapy as I would agree. No further therapy is needed. Physical Therapy Plan Discharge Physical Therapy Discharge Reasons Patient Request Discharge Comments Met goals except mild weakness with anterior PF for which in the future PT may be needed if urinary leakage returns. Thank you for your referral.
== END 2023-12-13 14:32 | disposition home or self-care (01) ==
LOC: PHYS 10:30
PROVIDERS: Family Provider Obstetrics & Gynecology; PCP Obstetrics & Gynecology; Referring Provider Obstetrics & Gynecology; Visit Provider Obstetrics & Gynecology
DX: N81.9 Female genital prolapse, unspecified (principal); M40.47 Postural lordosis, lumbosacral region; M25.659 Stiffness of unspecified hip, not elsewhere classified; K59.00 Constipation, unspecified
CPT/HCPCS: 97110; 97112; 97140; 97162; 97535